=== PATIENT | female | born 1975 | race African-American/Black ===

== ENCOUNTER 2018-04-17 13:16 | Emergency (ER) | payer MEDICAID ==
[~2018-04-17] VITALS: Ht 175.3 cm; Wt 72.6 kg
[2018-04-17] MEDS ORDERED: IBUPROFEN 600MG TABLET PO ONE (20:15)
[2018-04-17 20:51] VITALS: BP 148/80
== END 2018-04-17 20:51 | disposition home or self-care (01) ==
LOC: ER 13:16
DX: L03.115 Cellulitis of right lower limb (principal); Z98.51 Tubal ligation status; Z87.42 Personal history of other diseases of the female genital tract
CPT/HCPCS: 81025; 99283

== ENCOUNTER 2019-02-19 04:18 | Emergency (ER) | payer MEDICAID ==
[~2019-02-19] VITALS: Ht 172.7 cm; Wt 68.0 kg
[2019-02-19 07:09] LABS: BASOPHILS % 1.5 % (0.0-2.0); EOSINOPHILS % 1.1 % (0.0-5.0); HEMATOCRIT. 26.5 % (36.0-48.0); LYMPHOCYTES % 46.8 % (20.0-50.0); MEAN CORPUSCULAR HEMOGLOBIN 20.2 pg (28.0-32.0); MEAN CORPUSCULAR VOLUME 66.9 fL (81.0-99.0); MONOCYTES % 7.9 % (2.0-8.0); NEUTROPHILS % 42.7 % (40.0-76.0); PLATELET 401 x1000/uL (130-400); RED BLOOD CELL COUNT 3.95 mill/uL (4.2-5.4); RED CELL DISTRIBUTION WIDTH 21.6 % (11.6-14.6)
[2019-02-19 07:20] LABS: CHLORIDE 113 mEq/L (98-107)
[2019-02-19 07:25] LABS: ETHANOL BLOOD 122 mg/dL
[2019-02-19 07:27] LABS: HCG SCREEN NEGATIVE
[2019-02-19] MEDS ORDERED: LORAZEPAM 0.5MG TABLET PO ONE (07:30)
[2019-02-19 07:46] LABS: METHADONE URINE SCREEN NEGATIVE (NEGATIVE); OPIATES URINE SCREEN NEGATIVE (NEGATIVE)
[2019-02-19 07:47] LABS: *AMPHETAMINES SCREEN URINE NEGATIVE (NEGATIVE); *BARBITURATES SCREEN URINE NEGATIVE (NEGATIVE); *BENZODIAZEPINES SCREEN URINE NEGATIVE (NEGATIVE); *COCAINE SCREEN URINE NEGATIVE (NEGATIVE); CANNABINOID URINE SCREEN NEGATIVE (NEGATIVE); PHENCYCLIDINE URINE SCREEN NEGATIVE (NEGATIVE)
[2019-02-19 08:25] LABS: PLATELET ESTIMATE SLIGHTLY INCREASED
[2019-02-19 10:49] VITALS: BP 138/85
== END 2019-02-19 10:53 | disposition home or self-care (01) ==
LOC: ER 04:18
DX: R00.2 Palpitations (principal); F41.9 Anxiety disorder, unspecified; D64.9 Anemia, unspecified; F45.8 Other somatoform disorders
CPT/HCPCS: 36415; 71045; 80048; 80305; 80307; 80320; 80329; 81025; 84484; 84703; 93005; 99284; G0480

== ENCOUNTER 2019-04-26 00:34 | Emergency (ER) | payer MEDICAID ==
[~2019-04-26] VITALS: Ht 175.3 cm; Wt 69.0 kg
[2019-04-26] MEDS ORDERED: LIDOCAINE HCL 1% 20ML VIAL (Pyxis) INJ INFIL ONE (03:45)
[2019-04-26] MEDS ORDERED: TETANUS, DIPHTHERIA, PERTUSSIS VAC/PF 0.5ML (>7YR OLD) IM ONE (03:45)
[2019-04-26] MEDS ORDERED: IBUPROFEN 800MG TABLET PO ONE (06:45)
[2019-04-26 06:58] VITALS: BP 121/78
== END 2019-04-26 07:05 | disposition home or self-care (01) ==
LOC: ER 00:34
DX: S01.511A Laceration without foreign body of lip, initial encounter (principal); F17.200 Nicotine dependence, unspecified, uncomplicated; Z98.51 Tubal ligation status; Y08.89XA Assault by other specified means, initial encounter; Y93.89 Activity, other specified; Y92.89 Other specified places as the place of occurrence of the external cause; Y99.8 Other external cause status
CPT/HCPCS: 12013; 90471; 90715; 99283; J3490

== ENCOUNTER 2019-05-11 11:11 | Emergency (ER) | payer MEDICAID ==
[~2019-05-11] VITALS: Ht 175.3 cm; Wt 62.0 kg
[2019-05-11 13:18] VITALS: BP 134/94
== END 2019-05-11 13:22 | disposition home or self-care (01) ==
LOC: ER 11:11
DX: Z48.02 Encounter for removal of sutures (principal)
CPT/HCPCS: 99282

== ENCOUNTER 2020-03-04 14:27 | Emergency (ER) | payer MEDICAID ==
[~2020-03-04] VITALS: Ht 175.3 cm; Wt 58.0 kg
[2020-03-04 15:55] LABS: BASOPHILS % 1.1 % (0.0-2.0); EOSINOPHILS % 0.4 % (0.0-5.0); HEMATOCRIT. 25.7 % (36.0-48.0); HEMOGLOBIN. 7.9 g/dL (12.0-16.0); LYMPHOCYTES % 28.7 % (20.0-50.0); MEAN CORPUSCULAR HEMOGLOBIN 20.4 pg (28.0-32.0); MEAN CORPUSCULAR VOLUME 66.2 fL (81.0-99.0); MEAN PLATELET VOLUME 6.2 fl (7.4-10.4); MONOCYTES % 13.6 % (2.0-8.0); NEUTROPHILS % 56.2 % (40.0-76.0); PLATELET 756 x1000/uL (130-400); RED BLOOD CELL COUNT 3.88 mill/uL (4.2-5.4); RED CELL DISTRIBUTION WIDTH 22.1 % (11.6-14.6)
[2020-03-04 15:56] LABS: CLARITY URINE CLEAR (CLEAR); COLOR URINE YELLOW (YELLOW); KETONES URINE NEGATIVE (NEGATIVE); LEUKOCYTE ESTERASE URINE NEGATIVE (NEGATIVE); NITRITE URINE NEGATIVE (NEGATIVE); OCCULT BLOOD URINE NEGATIVE (NEGATIVE); PH URINE 6.5 (4.5-8.0); PROTEIN URINE NEGATIVE (NEGATIVE); SPECIFIC GRAVITY URINE 1.005 (1.005-1.030); UROBILINOGEN URINE 0.2 E.U./dL (0.2-1.0)
[2020-03-04 16:01] LABS: CHLORIDE 102 mEq/L (98-107)
[2020-03-04 16:05] LABS: ETHANOL BLOOD < 10 mg/dL
[2020-03-04 16:07] LABS: *COCAINE SCREEN URINE NEGATIVE (NEGATIVE); METHADONE URINE SCREEN NEGATIVE (NEGATIVE); OPIATES URINE SCREEN NEGATIVE (NEGATIVE)
[2020-03-04 16:08] LABS: *AMPHETAMINES SCREEN URINE NEGATIVE (NEGATIVE); *BARBITURATES SCREEN URINE NEGATIVE (NEGATIVE); *BENZODIAZEPINES SCREEN URINE NEGATIVE (NEGATIVE); CANNABINOID URINE SCREEN NEGATIVE (NEGATIVE); PHENCYCLIDINE URINE SCREEN NEGATIVE (NEGATIVE)
[2020-03-04] MEDS ORDERED: LORAZEPAM 2MG/ML CPJ IM PRN ×2 (16:15→17:45)
[2020-03-04] MEDS ORDERED: LORAZEPAM 1MG TABLET PO ONE (16:15)
[2020-03-04 16:34] LABS: PLATELET ESTIMATE INCREASED
[2020-03-04] MEDS ORDERED: HALOPERIDOL LACTATE 5MG/ML VIAL IM ONE (17:00)
[2020-03-04] MEDS ORDERED: DIPHENHYDRAMINE 50MG/ML VIAL IM PRN (17:00)
[2020-03-04] MEDS ORDERED: POTASSIUM CHLORIDE 20MEQ TABLET SR PO ONE (17:15)
[2020-03-05] MEDS: OLANZAPINE 5MG TABLET PO SCH ×3 (01:00→18:00)
[2020-03-06] MEDS ORDERED: POTASSIUM CHLORIDE 20MEQ/PACKET PO ONE (08:15)
[2020-03-06] MEDS: OLANZAPINE 5MG TABLET PO SCH (09:53)
[2020-03-06 11:09] VITALS: BP 123/84
== END 2020-03-06 11:13 | disposition home or self-care (01) ==
LOC: ER 14:27
DX: F22 Delusional disorders (principal); I10 Essential (primary) hypertension
CPT/HCPCS: 36415; 80053; 80305; 80320; 81003; 81025; 85025; 96372; 99285; J1200; J1630; J2060; G0480

== ENCOUNTER 2021-05-26 19:29 | Emergency (ER) | payer MEDICAID ==
[~2021-05-26] VITALS: Ht 172.7 cm; Wt 59.0 kg
[2021-05-26 19:47] VITALS: BP 95/49
== END 2021-05-26 21:23 | disposition home or self-care (01) ==
LOC: ER 19:29
DX: S01.112A Laceration without foreign body of left eyelid and periocular area, initial encounter (principal); W18.30XA Fall on same level, unspecified, initial encounter; Y93.89 Activity, other specified; Y92.89 Other specified places as the place of occurrence of the external cause; Y99.8 Other external cause status
CPT/HCPCS: 12011; 99283

== ENCOUNTER 2024-07-03 12:36 | Emergency (ER) | payer MEDICAID ==
[~2024-07-03] VITALS: Ht 175.3 cm; Wt 52.0 kg
[2024-07-03 12:46] VITALS: O2SAT 99
[2024-07-03] MEDS ORDERED: METR-167 MT (14:46)
[2024-07-03 14:51] VITALS: BP 105/66; PULSE 87; RESP 16; TEMP 36.78072; O2SAT 99
[2024-07-03 14:56] LABS: CLARITY URINE CLOUDY (CLEAR); COLOR URINE YELLOW (YELLOW); GLUCOSE URINE NEGATIVE (NEGATIVE); KETONES URINE NEGATIVE (NEGATIVE); LEUKOCYTE ESTERASE URINE TRACE (NEGATIVE); NITRITE URINE POSITIVE (NEGATIVE); OCCULT BLOOD URINE 3+ (NEGATIVE); PROTEIN URINE 1+ (NEGATIVE); SPECIFIC GRAVITY URINE 1.019 (1.005-1.030)
[2024-07-03] MEDS ORDERED: CEPH500T MT (15:11)
[2024-07-03 15:16] LABS: BACTERIA URINE 4+; RBC URINE 0-2 /hpf (0-2); SQUAMOUS EPITHELIAL CELL URINE 1+ /lpf (RARE/1+); YEAST URINE NONE SEEN
== END 2024-07-03 14:52 | disposition home or self-care (01) ==
LOC: ER 12:47
DX: N39.0 Urinary tract infection, site not specified (principal)
CPT/HCPCS: 81003; 87210; 99283

== ENCOUNTER 2025-04-22 17:32 | Emergency (ER) | payer MEDICAID ==
[~2025-04-22] VITALS: Ht 172.7 cm; Wt 52.0 kg
[~2025-04-22 17:32] MED LIST: CEPH500T MT; METR-167 MT
[2025-04-22 17:37] VITALS: O2SAT 95
[2025-04-22 18:12] LABS: ADD RBC MORPHOLOGY YES; BASOPHILS % 2.0 % (0.0-2.0); EOSINOPHILS % 0.5 % (0.0-5.0); HEMATOCRIT. 27.3 % (36.0-48.0); HEMOGLOBIN. 8.4 g/dL (12.0-16.0); LYMPHOCYTES % 45.0 % (20.0-50.0); MEAN PLATELET VOLUME 6.5 fl (7.4-10.4); MONOCYTES % 8.0 % (2.0-8.0); NEUTROPHILS % 44.5 % (40.0-76.0); PLATELET 457 x1000/uL (130-400); RED BLOOD CELL COUNT 4.03 mill/uL (4.2-5.4); RED CELL DISTRIBUTION WIDTH 25.1 % (11.6-14.6)
[2025-04-22 18:20] LABS: CREATININE 0.6 mg/dL (0.6-1.0); UREA NITROGEN BLOOD 9 mg/dL (9-23)
[2025-04-22 18:22] LABS: ASPARTATE AMINOTRANSFERASE 110 IU/L (<34); BILIRUBIN DIRECT 0.1 mg/dL (<=3.0); BILIRUBIN TOTAL 0.6 mg/dL (0.1-1.0); PROTEIN TOTAL 7.7 g/dL (6.0-8.3)
[2025-04-22 18:31] LABS: ETHANOL BLOOD 300 mg/dL (<10)
[2025-04-22] MEDS: SODIUM CHLORIDE 0.9% 1,000 ML IV ONE (18:36)
[2025-04-22 18:37] VITALS: BP 130/88; PULSE 85; RESP 16; TEMP 36.9; O2SAT 96
[2025-04-22 18:42] LABS: PLATELET ESTIMATE INCREASED
[2025-04-22 18:51] LABS: TROPONIN I HIGH SENSITIVITY 17 ng/L (3.0-34)
[2025-04-22] MEDS: POTASSIUM CHLORIDE 20MEQ/PACKET PO ONE (19:39)
== END 2025-04-22 20:05 | disposition home or self-care (01) ==
LOC: ER 17:32 → CMPBEDREQ 04-23 07:52
DX: F10.129 Alcohol abuse with intoxication, unspecified (principal); Z79.899 Other long term (current) drug therapy; Y90.8 Blood alcohol level of 240 mg/100 ml or more
CPT/HCPCS: 80076; 80048; 80320; 83735; 85025; 84484; 36415; 96360; 99283; J7030; Z7610; G0480